=== PATIENT | female | born 1985 | race American Indian/Alaskan Native ===

== ENCOUNTER 2021-09-12 13:58 | Emergency (ER) | payer MEDICAID ==
[2021-09-12 14:27] VITALS: BP 118/68
--- NOTE | 2021-09-12 14:31 | Emergency Department Report ---
ED General Adult HPI - General Chief complaint: Extremity Injury, Lower Stated complaint: FRACTURED RT FOOT PUI?: No Time Seen by Provider: 09/12/21 14:10 Source: patient Mode of arrival: Ambulatory Limitations: No Limitations - History of Present Illness Initial comments: 35-year-old female presents ER today requesting electric needle specialist. Patient reports that she accidentally fractured her right foot this morning. She states that she was at the gym and she stepped down and felt a pop in her right foot. She did see her primary care doctor at [facility] this morning. She states they did an x-ray and she was told she has 5th metatarsal fracture of the right foot. She was placed in any short posterior splint, given crutches and she was given referral information to electric needle specialist. She states that she did call electric needle specialist that she was referred to, but unfortunately they did not take her insurance. She states that she also called her insurance company to see if they could give her information on electric needle specialist she can follow-up with, but she states that the numbers they gave her were either not active or the specialist were not electric needle specialist. She states that she was instructed to take ibuprofen from [id number]. Reports no worsening symptoms since she was seen this morning, she just came in to see if she could be seen by an electric needle specialist. Complaint: Requesting referral to Coal Yard Supervisor/Foot fracture -: This morning - Related Data Allergies Allergy/AdvReac Type Severity Reaction Status Date / Time No Known Allergies Allergy Verified 09/12/21 14:03 ED Review of Systems ROS: Stated complaint: FRACTURED RT FOOT Other details as noted in HPI Comment: All other systems reviewed and negative Respiratory: denies: cough, shortness of breath, SOB with exertion, SOB at rest, wheezing Cardiovascular: denies: chest pain, palpitations Musculoskeletal: joint swelling, arthralgia Neurological: denies: headache, weakness, numbness, paresthesias, confusion, abnormal gait, vertigo Psychiatric: denies: anxiety, depression, auditory hallucinations, visual hallucinations, homicidal thoughts Hematological/Lymphatic: denies: easy bleeding, easy bruising, swollen glands ED Past Medical Hx - Past Medical History Previous Medical History?: No - Surgical History Past Surgical History?: No ED Physical Exam - General Limitations: No Limitations General appearance: alert, in no apparent distress - Head Head exam: Present: atraumatic, normocephalic, normal inspection - Eye Eye exam: Present: normal appearance, PERRL, EOMI Pupils: Present: normal accommodation - Cardiovascular Cardiovascular Exam: Present: regular rate, normal rhythm, normal heart sounds - Expanded Lower Extremity Exam Right Foot/Toe exam: Present: tenderness (Moderate tenderness to palpation to the base of the fifth metatarsal with some mild swelling and bruising noted. No apparent deformity. Dorsalis pedis pulse normal. Cap refill normal.) ED Course Vital Signs 09/12/21 14:06 Temperature 98.0 F Pulse Rate 62 Respiratory 16 Rate Blood Pressure 118/68 O2 Sat by Pulse 98 Oximetry ED Medical Decision Making - Medical Decision Making Patient was diagnosed with 5th metatarsal fracture this morning at her PCPs office and was placed in a short posterior splint. Patient came into the ER today hoping to be seen by electric needle specialist, as the electric needle specialist that she was referred to does not take her insurance and she also called few places that were given to her by insurance and the were not electric needle specialist, and some of them are inactive. Exam does not show any signs of compartment syndrome. Right lower extremity is neurovascularly intact. Splint was reapplied. Informed patient that we can give her referral to one of our electric needle specialist or she can try to follow-up with the logistics loss prevention manager since it was a foot fracture. She expressed understanding. Patient otherwise stable. Critical care attestation.: If time is entered above; I have spent that time in minutes in the direct care of this critically ill patient, excluding procedure time. ED Disposition Clinical Impression: Metatarsal fracture Disposition: 01 HOME / SELF CARE / HOMELESS Is pt being admited?: No Does the pt Need Aspirin: No Condition: Stable Instructions: Cast or Splint Care, Adult, [id number], Metatarsal Fracture Additional Instructions: Do not remove splint or get it wet. Use crutches to help ambulate. Elevate your leg as often as possible. Take the ibuprofen as prescribed for pain. Try to follow up with the Coal Yard Supervisor or Surgery Aide listed on your discharge in structions next week. Referrals: JEANE HUTCHINSON DPM [Staff Physician] - 3-5 Days (Surgery Aide) COREY SALCEDO MD [Staff Physician] - 3-5 Days (offender employment specialist) Forms: Work/School Release Form(ED) Time of Disposition: 14:30 Print Language: TUVALU[place]
== END 2021-09-12 15:16 | disposition home or self-care (01) ==
LOC: ED 13:58
DX: S92.351A Displaced fracture of fifth metatarsal bone, right foot, initial encounter for closed fracture (principal); W19.XXXA Unspecified fall, initial encounter; Y93.89 Activity, other specified; Y92.89 Other specified places as the place of occurrence of the external cause; Y99.8 Other external cause status
CPT/HCPCS: 99281